=== PATIENT | male | born 1970 | race Caucasian/White ===

== ENCOUNTER 2017-04-07 10:41 | Inpatient (IN) | payer BC ==
[~2017-04-07] VITALS: Ht 180.3 cm; Wt 69.4 kg
[2017-04-07 12:43] LABS: BASOPHIL (%) 0.5 % (0-1); BASOPHIL COUNT 0.1 K/uL (0-0.1); EOSINOPHIL (%) 0.4 % (0-5); HEMATOCRIT 54.9 % (38.0-50.0); HEMOGLOBIN 19.2 G/DL (12.5-16.6); IMMATURE GRANULOCYTE (%) 0.7 % (0.0-0.7); LYMPHOCYTE COUNT 0.9 K/uL (1.0-2.8); MCH 33.6 PG (29.0-34.0); MONOCYTE (%) 7.3 % (3-12); MONOCYTE COUNT 0.7 K/uL (0-0.8); NEUTROPHIL (%) 81.1 % (45-76); NEUTROPHIL COUNT 7.5 K/uL (1.8-6.4); PLATELET COUNT 144 K/uL (156-360); RBC DIS.WIDTH-CV 14.4 % (11.8-14.6); RBC DIS.WIDTH-SD 50.6 % (39-53); RED BLOOD COUNT 5.72 M/uL (4.00-5.50); WHITE BLOOD COUNT 9.2 K/uL (4.1-10.2)
[2017-04-07 12:54] LABS: CHLORIDE 109 mEq/L (99-109); POTASSIUM 3.9 mEq/L (3.7-5.4); SODIUM 144 mEq/L (136-147)
[2017-04-07 12:56] LABS: GLUCOSE 85 mg/dL (70-99)
[2017-04-07 13:00] LABS: CREATININE 0.7 mg/dL (0.6-1.3); GFR ESTIMATE (CALCULATED) > 59 mL/min/ (58.99-99999); UREA NITROGEN (BUN) 5 mg/dL (9-23)
[2017-04-07 15:34] LABS: INTER. NORMALIZED RATIO 1.1
[2017-04-07 15:37] LABS: PTT 34.1 SEC (25-37)
[2017-04-08 00:08] VITALS: BP 125/82
[2017-04-08 05:25] VITALS: BP 112/72
[2017-04-08 07:10] VITALS: BP 112/66
[2017-04-08 14:05] VITALS: BP 121/75
[2017-04-09 00:05] VITALS: BP 121/75
[2017-04-09 05:23] LABS: HEMATOCRIT 51.1 % (38.0-50.0); HEMOGLOBIN 17.3 G/DL (12.5-16.6); MCH 33.3 PG (29.0-34.0); MCHC 33.9 G/DL (30.0-36.0); MCV 98.3 FL (86-99); PLATELET COUNT 141 K/uL (156-360); RBC DIS.WIDTH-CV 14.1 % (11.8-14.6); RBC DIS.WIDTH-SD 51.4 % (39-53); WHITE BLOOD COUNT 6.9 K/uL (4.1-10.2)
[2017-04-09 07:20] VITALS: BP 111/66
[2017-04-09] MEDS ORDERED: XARELTO1 EACH PO (10:59)
[2017-04-09] MEDS ORDERED: TRUFORM COMPRE1 EAC1 MC (11:05)
== END 2017-04-09 14:23 | disposition home or self-care (01) | DRG 300 ==
LOC: EME 10:41 → 5EAST 13:53 → EDOF 13:53 → ENRESERV 14:01 → 5EAST 20:37
PROVIDERS: Emergency Medicine; Nurse Practitioner Family
DX: I82.411 Acute embolism and thrombosis of right femoral vein (principal); D68.2 Hereditary deficiency of other clotting factors; F17.210 Nicotine dependence, cigarettes, uncomplicated; D68.51 Activated protein C resistance; D75.1 Secondary polycythemia; Z79.01 Long term (current) use of anticoagulants
CPT/HCPCS: 80048; 85025; 85027; 85610; 85730; 93971; 99281; 99285